=== PATIENT | female | born 1945 | race Caucasian/White ===

== ENCOUNTER → 2021-04-27 | Outpatient (CLI) | payer MEDICARE ==
[~2021-04-27] MED LIST: METOPROLOL 1 MG/ML, 5ML ONE; VISIPAQUE 320 MG/ML, 150ML BOTTLE ONE
== END | disposition home or self-care (01) ==
LOC: RAD 11:01
PROVIDERS: ATTEND Internal Medicine Cardiovascular Disease
DX: Z01.810 Encounter for preprocedural cardiovascular examination (principal); I25.10 Atherosclerotic heart disease of native coronary artery without angina pectoris; R91.8 Other nonspecific abnormal finding of lung field; J43.2 Centrilobular emphysema; N28.1 Cyst of kidney, acquired; I65.23 Occlusion and stenosis of bilateral carotid arteries; I35.8 Other nonrheumatic aortic valve disorders
CPT/HCPCS: 71275; 74174; 93880; Q9967

== ENCOUNTER 2021-05-11 07:44 | Inpatient (IN) | payer MEDICARE ==
[~2021-05-11] VITALS: Ht 177.8 cm; Wt 88.5 kg
[2021-05-11] MEDS ORDERED: SODIUM CHLORIDE 0.9% 1,000 ML IV ONE (08:30)
[2021-05-11] MEDS ORDERED: ONDANSETRON 2MG/ML, 2ML IV PRN (08:30)
[2021-05-11 09:03] VITALS: BP 131/78
[2021-05-11 09:07] LABS: BASOPHILS % (AUTO) 1 % (0-1); EOSINOPHILS % (AUTO) 5 % (1-7); LYMPHOCYTES % (AUTO) 23 % (22-44); MEAN CORPUSCULAR HEMOGLOBIN 26.7 pg (27.0-34.8); MEAN CORPUSCULAR HGB CONC 32.2 g/dL (32.4-35.8); MEAN PLATELET VOLUME 8.7 fL (7.4-10.4); MONOCYTES % (AUTO) 12 % (2-9); NEUTROPHILS % (AUTO) 59 % (42-75); PLATELET COUNT 220 x10^3/uL (130-400); RED BLOOD COUNT 4.07 x10^6/uL (3.82-5.3); RED CELL DISTRIBUTION WIDTH 14.7 % (9.6-15.2)
[2021-05-11 09:16] LABS: INTERNATIONAL NORMALIZED RATIO 1.08 (0.93-1.1); PROTHROMBIN TIME 11.5 Seconds (9.6-11.5)
[2021-05-11 09:18] LABS: ALANINE AMINOTRANSFERASE 11 U/L (12-78); ALBUMIN 3.3 g/dL (3.4-5.0); ANION GAP 10 mmol/L (5-15); CALCIUM 9.5 mg/dL (8.5-10.1); CHLORIDE 109 mmol/L (98-107); CREATININE 0.79 mg/dL (0.55-1.02)
[2021-05-11 09:20] LABS: ALKALINE PHOSPHATASE 67 U/L (45-117); BILIRUBIN,TOTAL 0.3 mg/dL (0.2-1.0); TOTAL PROTEIN 7.6 g/dL (6.4-8.2)
[2021-05-11] MEDS ORDERED: METF500T17 PO (09:27)
[2021-05-11] MEDS ORDERED: APIX5TAB PO (09:27)
[2021-05-11] MEDS ORDERED: METO25TA91 PO (09:27)
[2021-05-11] MEDS ORDERED: LEVO200T5 PO (09:27)
[2021-05-11] MEDS ORDERED: ASPI81TA45 PO (09:43)
[2021-05-11] MEDS ORDERED: Vitamin C (09:45)
[2021-05-11] MEDS ORDERED: Vitamin E (09:45)
[2021-05-11] MEDS ORDERED: Vitamin D3 (09:45)
[2021-05-11] MEDS ORDERED: Hydroxychloroquine PO (09:47)
[2021-05-11] MEDS ORDERED: HEPARIN 1,000 UNITS/ML, 10ML ONE ×2 (10:40)
[2021-05-11] MEDS ORDERED: PROPOFOL 10 MG/ML, 20ML ONE (10:40)
[2021-05-11] MEDS ORDERED: PROTAMINE SULFATE 10 MG/ML, 5ML ONE (10:40)
[2021-05-11] MEDS ORDERED: DEXAMETHASONE 4 MG/ML, 1ML ONE ×2 (10:40)
[2021-05-11] MEDS ORDERED: CEFAZOLIN 1,000 MG ONE ×2 (10:40)
[2021-05-11] MEDS ORDERED: ROCURONIUM 10MG/ML,5ML ONE (10:40)
[2021-05-11] MEDS ORDERED: FENTANYL PF 250 MCG/5ML ONE (10:40)
[2021-05-11] MEDS ORDERED: ONDANSETRON 2MG/ML, 2ML ONE ×2 (11:30)
[2021-05-11] MEDS ORDERED: hydrALAzine 20 MG/ML, 1ML IVPush PRN (12:00)
[2021-05-11] MEDS ORDERED: ACETAMINOPHEN 325 MG TABLET PO PRN (12:00)
[2021-05-11] MEDS ORDERED: LABETALOL 20 MG/4 ML IVPush PRN (12:00)
[2021-05-11] MEDS ORDERED: LABETALOL 5MG/ML, 20ML IVPush PRN (14:00)
[2021-05-11 20:31] VITALS: BP 156/82
[2021-05-11] MEDS: APIXABAN 5 MG TABLET PO SCH (21:07)
[2021-05-11] MEDS: metFORMIN 500 MG TABLET PO SCH (21:07)
[2021-05-12 00:25] VITALS: BP 126/74
[2021-05-12 04:46] LABS: BASOPHILS % (AUTO) 1 % (0-1); EOSINOPHILS % (AUTO) 1 % (1-7); LYMPHOCYTES % (AUTO) 9 % (22-44); MEAN CORPUSCULAR HEMOGLOBIN 27.5 pg (27.0-34.8); MEAN CORPUSCULAR HGB CONC 33.1 g/dL (32.4-35.8); MEAN PLATELET VOLUME 9.4 fL (7.4-10.4); MONOCYTES % (AUTO) 9 % (2-9); NEUTROPHILS % (AUTO) 82 % (42-75); PLATELET COUNT 197 x10^3/uL (130-400)
[2021-05-12 04:54] LABS: ANION GAP 6 mmol/L (5-15); CALCIUM 9.4 mg/dL (8.5-10.1); CHLORIDE 109 mmol/L (98-107)
[2021-05-12 04:55] LABS: CREATININE 0.81 mg/dL (0.55-1.02)
[2021-05-12] MEDS ORDERED: LEVOTHYROXINE 200 MCG TABLET PO SCH (06:00)
[2021-05-12 07:08] VITALS: BP 123/76
[2021-05-12] MEDS ORDERED: ALUMINUM/MAG/SIMETHICONE 30 ML UDC PO PRN (08:30)
[2021-05-12 08:32] VITALS: BP 129/80
[2021-05-12] MEDS: metFORMIN 500 MG TABLET PO SCH (08:32)
[2021-05-12] MEDS: APIXABAN 5 MG TABLET PO SCH (08:33)
[2021-05-12] MEDS ORDERED: ASPIRIN 81 MG TABLET EC PO SCH (09:00)
[2021-05-12] MEDS ORDERED: METOPROLOL SUCCINATE 25 MG TAB.ER.24H PO SCH (09:00)
[2021-05-12] MEDS ORDERED: metFORMIN 500 MG TABLET PO SCH (17:00)
== END 2021-05-12 13:36 | disposition home or self-care (01) | DRG 267 ==
LOC: ORIP 07:44 → 5SO 13:04
PROVIDERS: ADMIT Internal Medicine Cardiovascular Disease; ATTEND Internal Medicine Cardiovascular Disease
PROC: B24BZZ4 Ultrasonography of Heart with Aorta, Transesophageal (ICD-10-PCS; 2021-05-11)
PROC: 02RF38Z Replacement of Aortic Valve with Zooplastic Tissue, Percutaneous Approach (ICD-10-PCS; principal; 2021-05-11 10:30)
DX: I35.0 Nonrheumatic aortic (valve) stenosis (principal); D68.69 Other thrombophilia; I50.32 Chronic diastolic (congestive) heart failure; Z00.6 Encounter for examination for normal comparison and control in clinical research program; D64.9 Anemia, unspecified; D72.829 Elevated white blood cell count, unspecified; Z20.822 Contact with and (suspected) exposure to COVID-19; E03.9 Hypothyroidism, unspecified; E11.9 Type 2 diabetes mellitus without complications; E66.9 Obesity, unspecified; I11.0 Hypertensive heart disease with heart failure; I48.0 Paroxysmal atrial fibrillation; R53.83 Other fatigue; Z68.28 Body mass index [BMI] 28.0-28.9, adult; Z87.891 Personal history of nicotine dependence
CPT/HCPCS: 33361; 36415; 76937; 80048; 80053; 85025; 85347; 85610; 86850; 86900; 86923; 87635; 93005; 93306; 93355; C1760; C1769; C1894; G0378; J0690; J1100; J1644; J2405; J2704; J2720; J3010; J7030; Q9967